=== PATIENT | female | born 1955 | race American Indian/Alaskan Native ===

== ENCOUNTER 2021-07-28 23:31 | Inpatient (IN) | payer BC ==
--- NOTE | 2021-07-29 00:16 | Emergency Department Report ---
ED General Adult HPI - General Chief complaint: Neuro Symptoms/Deficit Stated complaint: FOOT PAIN Time Seen by Provider: 07/29/21 00:09 Source: patient, EMS Mode of arrival: Stretcher Limitations: No Limitations - History of Present Illness Initial comments: Patient is 65 years old female with history of hypertension and a recent suicide attempt by antifreeze. Patient was on vent for a while in another hospital and released [facility] treatment of [facility] ideation. Patient reported that she is having a right foot pain and numbness that started today. Patient denied any fever or chills. No chest pain or shortness of unique th. No weakness or bowel incontinence or bladder incontinence. - Related Data Allergies Allergy/AdvReac Type Severity Reaction Status Date / Time Sulfa (Sulfonamide Allergy Hives Verified 07/29/21 00:08 Antibiotics) ED Review of Systems ROS: Stated complaint: FOOT PAIN Other details as noted in HPI Comment: All other systems reviewed and negative Constitutional: denies: chills, fever Respiratory: denies: orthopnea, shortness of breath, SOB with exertion Cardiovascular: denies: chest pain, palpitations Gastrointestinal: denies: abdominal pain, nausea, vomiting Musculoskeletal: denies: back pain Neurological: numbness, paresthesias. denies: headache, weakness, confusion, abnormal gait ED Past Medical Hx - Past Medical History Previous Medical History?: Yes Hx Hypertension: Yes Additional medical history: Suicidal Attempt - Surgical History Past Surgical History?: Yes Additional Surgical History: Hysterectomy - Social History Smoking Status: Never Smoker Substance Use Type: None ED Physical Exam - General Limitations: No Limitations General appearance: alert, in no apparent distress - Head Head exam: Present: atraumatic, normocephalic, normal inspection - Eye Eye exam: Present: normal appearance, PERRL - ENT ENT exam: Present: normal exam, normal orophraynx, mucous membranes moist - Neck Neck exam: Present: normal inspection, full ROM. Absent: tenderness, meningismus - Respiratory Respiratory exam: Present: normal lung sounds bilaterally - Cardiovascular Cardiovascular Exam: Present: regular rate, normal rhythm, normal heart sounds - GI/Abdominal GI/Abdominal exam: Present: soft, normal bowel sounds. Absent: distended, tenderness, guarding, rebound, rigid, organomegaly, mass, bruit, pulsatile mass - Extremities Exam Extremities exam: Present: normal inspection, full ROM, normal capillary refill. Absent: tenderness, pedal edema, joint swelling, calf tenderness - Back Exam Back exam: Present: normal inspection, full ROM. Absent: CVA tenderness (R), CVA tenderness (L) - Neurological Exam Neurological exam: Present: alert, oriented X3, CN II-XII intact. Absent: motor sensory deficit - Psychiatric Psychiatric exam: Present: flat affect - Skin Skin exam: Present: warm, intact, normal color ED Course Vital Signs 07/28/21 07/29/21 07/29/21 23:52 00:05 00:16 Temperature 98 F Pulse Rate 88 71 Respiratory 18 13 15 Rate Blood Pressure 155/66 Blood Pressure [Left] O2 Sat by Pulse 18 L 98 100 Oximetry 07/29/21 07/29/21 07/29/21 00:30 00:45 00:46 Temperature 97.9 F Pulse Rate 69 66 Respiratory 18 15 20 Rate Blood Pressure 153/67 Blood Pressure 153/67 [Left] O2 Sat by Pulse 100 98 98 Oximetry 07/29/21 07/29/21 07/29/21 01:00 01:16 01:30 Temperature Pulse Rate 64 58 L 71 Respiratory 18 17 21 Rate Blood Pressure 134/59 134/59 106/53 Blood Pressure [Left] O2 Sat by Pulse 98 97 99 Oximetry 07/29/21 07/29/21 07/29/21 01:56 02:00 02:06 Temperature Pulse Rate 79 76 73 Respiratory 23 17 Rate Blood Pressure Blood Pressure 148/56 [Left] O2 Sat by Pulse 99 97 Oximetry 07/29/21 07/29/21 07/29/21 02:16 02:30 02:46 Temperature Pulse Rate 67 63 88 Respiratory 20 17 23 Rate Blood Pressure 155/65 144/64 144/64 Blood Pressure [Left] O2 Sat by Pulse 97 97 97 Oximetry 07/29/21 07/29/21 07/29/21 03:00 03:16 03:30 Temperature Pulse Rate 74 56 L 73 Respiratory 23 16 21 Rate Blood Pressure 152/68 152/68 163/79 Blood Pressure [Left] O2 Sat by Pulse 97 95 94 Oximetry 07/29/21 07/29/21 07/29/21 03:46 04:00 04:16 Temperature Pulse Rate 70 68 54 L Respiratory 20 20 15 Rate Blood Pressure 163/79 147/59 147/59 Blood Pressure [Left] O2 Sat by Pulse 97 97 96 Oximetry 07/29/21 07/29/21 07/29/21 04:30 04:46 05:00 Temperature Pulse Rate 53 L 60 55 L Respiratory 15 17 15 Rate Blood Pressure 112/46 112/46 123/54 Blood Pressure [Left] O2 Sat by Pulse 96 98 96 Oximetry 07/29/21 07/29/21 07/29/21 05:16 05:30 05:46 Temperature Pulse Rate 72 74 80 Respiratory 20 22 24 Rate Blood Pressure 123/54 141/56 141/56 Blood Pressure [Left] O2 Sat by Pulse 98 98 97 Oximetry 07/29/21 07/29/21 07/29/21 06:00 06:16 06:30 Temperature Pulse Rate 73 80 69 Respiratory 22 25 H 22 Rate Blood Pressure 142/46 142/46 145/61 Blood Pressure [Left] O2 Sat by Pulse 96 96 95 Oximetry 07/29/21 07/29/21 07/29/21 06:46 07:00 07:16 Temperature Pulse Rate 66 57 L 65 Respiratory 21 17 15 Rate Blood Pressure 145/61 128/52 128/52 Blood Pressure [Left] O2 Sat by Pulse 95 93 97 Oximetry 07/29/21 07/29/21 07/29/21 07:30 07:40 07:44 Temperature Pulse Rate 64 71 Respiratory 18 19 Rate Blood Pressure 146/61 146/61 Blood Pressure [Left] O2 Sat by Pulse 97 97 98 Oximetry 07/29/21 07/29/21 07:50 08:00 Temperature Pulse Rate 81 71 Respiratory 23 13 Rate Blood Pressure 146/61 154/77 Blood Pressure [Left] O2 Sat by Pulse 97 96 Oximetry ED Medical Decision Making - Lab Data Result diagrams: 07/29/21 00:20 07/29/21 00:20 - Radiology Data Radiology results: report reviewed - Medical Decision Making Patient is 65 years old female with history of hypertension and a recent suicide attempt by antifreeze. Patient was on vent for a while in another hospital and released yesterday to [facility] for treatment of suicidal ideation. Patient reported that she is having a right foot pain and numbness that started today. Patient denied any fever or chills. No chest pain or shortness of breath. No weakness or bowel incontinence or bladder incontinence. Labs reviewed and is unremarkable. CTA right lower extremity showed loculated collection could be hematoma or infection according to the report. Report also indicated that this is good have some mass-effect on sciatic nerve and will produce patient current symptoms of paresthesia in the right lower extremity. I discussed the patient with Dr. Bruce, surgeon on-call and he advised to admit the patient to the hospital for further management. I discussed the patient with Dr. Dumont, he agreed to admit the patient to the hospital. Critical care attestation.: If time is entered above; I have spent that time in minutes in the direct care of this critically ill patient, excluding procedure time. ED Disposition Clinical Impression: Numbness of right foot, Mass Disposition: 02 SHORT TERM HOSPITAL Is pt being admited?: Yes Condition: Stable
[2021-07-29 00:56] LABS: Basophils % (Auto) 0.5 % (0.0-1.8); Eosinophils # (Auto) 0.1 K/mm3 (0.0-0.4); Eosinophils % (Auto) 1.8 % (0.0-4.3); Hematocrit 35.8 % (30.3-42.9); Hemoglobin 12.8 gm/dl (10.1-14.3); Lymphocytes # (Auto) 1.3 K/mm3 (1.2-5.4); Lymphocytes % (Auto) 16.5 % (13.4-35.0); Mean Corpuscular HGB Conc 36 % (30-34); Mean Corpuscular Volume 88 fl (79-97); Monocytes % (Auto) 12.1 % (0.0-7.3); Platelet Count 287 K/mm3 (140-440); Red Blood Count 4.06 M/mm3 (3.65-5.03); Red Cell Distribution Width 12.6 % (13.2-15.2)
[2021-07-29 01:05] LABS: Blood Urea Nitrogen 10 mg/dL (7-17); Hemolysis Index 4
[2021-07-29 01:09] LABS: BUN/Creatinine Ratio 20
--- NOTE | 2021-07-29 02:55 | Cat Scan Report ---
CTA ABDOMEN, PELVIS, AND LOWER EXTREMITIES INDICATION: right foot pain and numbness. TECHNIQUE: Axial CT images were obtained through the abdomen, pelvis and lower extremities after injection of IV contrast. 3 plane MIP reconstructions were produced. All CT scans at this location are performed usi ng CT dose reduction for ALARA by means of automated exposure control. COMPARISON: None available. FINDINGS: CTA ABDOMEN: Abdominal Aorta: No significant abnormality. Celiac Artery: No significant abnormality. Superior Mesenteric Artery: No significant abnormality. Right Renal Artery: No significant abnormality. Left Renal Artery: No significant abnormality. Inferior Mesenteric Artery: No significant abnormality. CTA PELVIS: RIGHT: Common Iliac Artery: No significant abnormality. Internal Iliac Artery: No significant abnormality. External Iliac Artery: No significant abnormality. LEFT: Common Iliac Artery: No significant abnormality. Internal Iliac Artery: No significant abnormality. External Iliac Artery: No significant abnormality. CTA LOWER EXTREMITIES: RIGHT LOWER EXTREMITY: Common Femoral Artery: No significant abnormality. Superficial Femoral Artery: No significant abnormality. Profunda Femoral Artery: No significant abnormality. Popliteal Artery: No significant abnormality. Anterior Tibial Artery: No significant abnormality. Tibioperoneal Trunk: No significant abnormality. Posterior Tibial Artery: No significant abnormality. Peroneal Artery: No significant abnormality. Ankle runoff: Three vessel. LEFT LOWER EXTREMITY: Common Femoral Artery: No significant abnormality. Superficial Femoral Artery: No significant abnormality. Profunda Femoral Artery: No significant abnormality. Popliteal Artery: No significant abnormality. Anterior Tibial Artery: No significant abnormality. Tibioperoneal Trunk: No significant abnormality. Posterior Tibial Artery: No significant abnormality. Peroneal Artery: No significant abnormality. Ankle runoff: Three vessel. NONTARGET STRUCTURES: ABDOMEN:No significant abnormality. PELVIS:Tubular hypodensity in the right hemipelvis may be hydrosalpinx. This could also be adjacent r ight ovarian cysts. Punctate focus of gas in the bladder lumen could be due to recent instrumentation . LOWER EXTREMITIES:There is subcutaneous edema within both thighs, right greater than left. There is h ypodensity in the region of the proximal posterior right abductor musculature and at the quadratus fe madonna muscle. This could impinge upon the sciatic nerve in this region. SKELETAL: No significant abnormality. ADDITIONAL FINDINGS: Mild bibasilar opacities may be atelectatic. There are trace pleural effusions b ilaterally. IMPRESSION: 1. No significant vascular abnormality. 2. Along the inferior medial aspect of the right hip there is somewhat circumscribed loculated low de nsity in the proximal posterior right adductor muscles and within the right quadratus femoris muscle. Inferior portion of this measures 4.7 x 1.7 cm on axial series 2 image 361. This could be related to recent injury with muscle strain and intramuscular hematoma. In the absence of recent trauma, this c ould be due to infection. There is associated subcutaneous edema in the right thigh. Given the histor y of right lower extremity neuropathic symptoms, this collection may be exerting mass effect on the r ight sciatic nerve in the proximal right thigh. 3. Additional incidental findings as above. Signer Name: Shun Morrow MD Signed: 07/29/2021 2:50 AM Workstation Name: [id number]
[2021-07-29] MEDS ORDERED: ONDANSETRON 4 MG/2 ML INJ IV PRN (05:08)
[2021-07-29] MEDS ORDERED: HYDROmorphone 1 MG/1 ML INJ IV PRN (05:08)
[2021-07-29] MEDS ORDERED: ACETAMINOPHEN 325 MG TAB PO PRN (05:08)
[2021-07-29] MEDS ORDERED: MORPHINE 2 MG/1 ML INJ IV PRN (05:08)
[2021-07-29] MEDS ORDERED: ALBUTEROL 2.5 MG/3 ML NEBU IH PRN (05:08)
[2021-07-29] MEDS ORDERED: hydrALAZINE 20 MG/1 ML INJ IV PRN (05:14)
--- NOTE | 2021-07-29 05:14 | History and Physical Report ---
History of Present Illness Date of examination: 07/29/21 Date of admission: 07/29/21 Chief complaint: Right foot pain and numbness History of present illness: 65 years old female with history of hypertension and a recent suicide attempt by antifreeze. Patient was on vent for a while in another hospital and released yesterday to [facility] for treatment of suicidal ideation. Patient reported that she is having a right foot pain and numbness that started today. Patient denied any fever or chills. No chest pain or shortness of breath. No weakness or bowel incontinence or bladder incontinence. Labs reviewed and is unremarkable. CTA right lower extremity showed loculated collection could be hematoma or infection according to the report. Report also indicated that this is good have some mass-effect on sciatic nerve and will produce patient current symptoms of paresthesia in the right lower extremity. I discussed the patient with Dr. Bruce, surgeon on-call and he advised to admit the patient to the hospital for further management. Past History Past Medical History: hypertension, other (Suicidal attempt) Past Surgical History: hysterectomy, Other Social history: other (Never a smoker) Medications and Allergies Allergies Allergy/AdvReac Type Severity Reaction Status Date / Time Sulfa (Sulfonamide Allergy Hives Verified 07/29/21 00:08 Antibiotics) Active Meds: Active Medications Acetaminophen (Acetaminophen 325 Mg Tab) 650 mg PO Q4H PRN PRN Reason: Pain MILD(1-3)/Fever >100.5/SLATER Albuterol (Albuterol 2.5 Mg/3 Ml Nebu) 2.5 mg IH Q3HRT PRN PRN Reason: Shortness Of Breath Albuterol/Ipratropium (Ipratropium/Albuterol Sulfate 3 Ml Ampul.Neb) 1 ampul IH Q6HRT LENIN Famotidine (Famotidine 20 Mg/2 Ml Inj) 20 mg IV BID LENIN Hydromorphone HCl (Hydromorphone 1 Mg/1 Ml Inj) 0.5 mg IV Q3H PRN PRN Reason: Pain , Severe (7-10) Dextrose/Sodium Chloride (D5/0.45ns) 1,000 mls @ 100 mls/hr IV DIRECT LENIN Morphine Sulfate (Morphine 2 Mg/1 Ml Inj) 2 mg IV Q4H PRN PRN Reason: Pain, Moderate (4-6) Ondansetron HCl (Ondansetron 4 Mg/2 Ml Inj) 4 mg IV Q8H PRN PRN Reason: Nausea And Vomiting Sodium Chloride (Sodium Chloride 0.9% 10 Ml Flush Syringe) 10 ml IV BID LENIN Sodium Chloride (Sodium Chloride 0.9% 10 Ml Flush Syringe) 10 ml IV PRN PRN PRN Reason: LINE FLUSH Review of Systems Constitutional: other (Right foot pain and numbness) Exam - Constitutional Vitals: Temp Pulse Resp BP Pulse Ox 97.9 F 56 L 16 152/68 95 07/29/21 00:45 07/29/21 03:16 07/29/21 03:16 07/29/21 03:16 07/29/21 03:16 General appearance: Present: no acute distress, well-nourished - EENT Eyes: Present: PERRL ENT: hearing intact, clear oral mucosa - Neck Neck: Present: supple, normal ROM - Respiratory Respiratory effort: normal Respiratory: bilateral: CTA - Cardiovascular Heart Sounds: Present: S1 & S2. Absent: rub, click - Extremities Extremities: pulses symmetrical, No edema Peripheral Pulses: within normal limits - Abdominal General gastrointestinal: Present: soft, non-tender, non-distended, normal bowel sounds Female genitourinary: Present: normal - Integumentary Integumentary: Present: clear, warm, dry - Musculoskeletal Musculoskeletal: gait normal, strength equal bilaterally - Psychiatric Psychiatric: appropriate mood/affect, intact judgment & insight - Neurologic Neurologic: CNII-XII intact, moves all extremities Results - Labs CBC & Chem 7: 07/29/21 00:20 07/29/21 00:20 Labs: Laboratory Last Values WBC 8.1 K/mm3 (4.5-11.0) 07/29/21 00:20 RBC 4.06 M/mm3 (3.65-5.03) 07/29/21 00:20 Hgb 12.8 gm/dl (10.1-14.3) 07/29/21 00:20 Hct 35.8 % (30.3-42.9) 07/29/21 00:20 MCV 88 fl (79-97) 07/29/21 00:20 MCH 31 pg (28-32) 07/29/21 00:20 MCHC 36 % (30-34) H 07/29/21 00:20 RDW 12.6 % (13.2-15.2) L 07/29/21 00:20 Plt Count 287 K/mm3 (140-440) 07/29/21 00:20 Lymph % (Auto) 16.5 % (13.4-35.0) 07/29/21 00:20 [place] % (Auto) 12.1 % (0.0-7.3) H 07/29/21 00:20 Eos % (Auto) 1.8 % (0.0-4.3) 07/29/21 00:20 Baso % (Auto) 0.5 % (0.0-1.8) 07/29/21 00:20 Lymph # (Auto) 1.3 K/mm3 (1.2-5.4) 07/29/21 00:20 [place] # (Auto) 1.0 K/mm3 (0.0-0.8) H 07/29/21 00:20 Eos # (Auto) 0.1 K/mm3 (0.0-0.4) 07/29/21 00:20 Baso # (Auto) 0.0 K/mm3 (0.0-0.1) 07/29/21 00:20 Seg Neutrophils % 69.1 % (40.0-70.0) 07/29/21 00:20 Seg Neutrophils # 5.6 K/mm3 (1.8-7.7) 07/29/21 00:20 Sodium 140 mmol/L (137-145) 07/29/21 00:20 Potassium 3.9 mmol/L (3.6-5.0) 07/29/21 00:20 Chloride 102.8 mmol/L (98-107) 07/29/21 00:20 Carbon Dioxide 25 mmol/L (22-30) 07/29/21 00:20 Anion Gap 16 mmol/L 07/29/21 00:20 BUN 10 mg/dL (7-17) 07/29/21 00:20 Creatinine 0.5 mg/dL (0.6-1.2) L 07/29/21 00:20 Estimated GFR > 60 ml/min 07/29/21 00:20 BUN/Creatinine Ratio 20 % 07/29/21 00:20 Glucose 103 mg/dL (65-100) H 07/29/21 00:20 Calcium 9.0 mg/dL (8.4-10.2) 07/29/21 00:20 - Imaging and Cardiology CT scan - pelvis: report reviewed Assessment and Plan VTE prophylaxis?: Mechanical Plan of care discussed with patient/family: Yes - Patient Problems (1) Numbness of right foot Status: Acute Plan to address problem: Admit the patient to the medical floor. NPO. D5 half-normal saline at the rate of 100 cc/h. Morphine 2 mg IV every 4 hours as needed. Reconsult Dr. Bruce to see the patient for evaluation. Recheck CBC in the morning (2) Mass Status: Acute Plan to address problem: NPO. D5 half-normal saline at the rate of 100 cc/h. Morphine 2 mg IV every 4 hours as needed. Reconsult Dr. Bruce to see the patient for evaluation. Recheck CBC in the morning (3) Hypertension Status: Acute Plan to address problem: Hydralazine 10 mg IV every 6 hours as needed. We will continue the home medication. We will monitor the blood pressure closely (4) Suicide attempt Status: Acute Plan to address problem: We monitor the patient closely. Reconsult psych for evaluation (5) DVT prophylaxis Status: Acute Plan to address problem: SCD for DVT prophylaxis. Pepcid 20 mg p.o. twice daily for GI prophylaxis. Patient is a full code
--- NOTE | 2021-07-29 07:23 | Consultation ---
History of Present Illness Consult date: 07/29/21 - History of present illness History of present illness: Pt with recent antifreese [place] reulting in admission and ventillator support now sith co right foot numbness. CTA with good perfusion but with an area of concern in the muscles of the right leg pooibly adjacent to the sciatic nerve. CTA reviewed. area is seen but is likelly not able to compress the nerve with its current size and locaiton. It is also unlikely to cause isolated foot numbness with compression at this point. Ethylene glycol exposure can cause delayed nerve injuries. Cranial nerve palsey has been reported. Peripheral neuropathy related to the metabolic toxins from ethylene glycol is more likely possible. Recommend neurology consult. Past History Past Medical History: hypertension, other (Suicidal attempt) Past Surgical History: hysterectomy, Other Social history: other (Never a smoker) Medications and Allergies Allergies Allergy/AdvReac Type Severity Reaction Status Date / Time Sulfa (Sulfonamide Allergy Hives Verified 07/29/21 00:08 Antibiotics) Active Meds: Active Medications Acetaminophen (Acetaminophen 325 Mg Tab) 650 mg PO Q4H PRN PRN Reason: Pain MILD(1-3)/Fever >100.5/SLATER Albuterol (Albuterol 2.5 Mg/3 Ml Nebu) 2.5 mg IH Q3HRT PRN PRN Reason: Shortness Of Breath Albuterol/Ipratropium (Ipratropium/Albuterol Sulfate 3 Ml Ampul.Neb) 1 ampul IH Q6HRT LENIN Famotidine (Famotidine 20 Mg/2 Ml Inj) 20 mg IV BID LENIN Hydralazine HCl (Hydralazine 20 Mg/1 Ml Inj) 10 mg IV Q6H PRN PRN Reason: Blood Pressure Hydromorphone HCl (Hydromorphone 1 Mg/1 Ml Inj) 0.5 mg IV Q3H PRN PRN Reason: Pain , Severe (7-10) Dextrose/Sodium Chloride (D5/0.45ns) 1,000 mls @ 100 mls/hr IV DIRECT LENIN Morphine Sulfate (Morphine 2 Mg/1 Ml Inj) 2 mg IV Q4H PRN PRN Reason: Pain, Moderate (4-6) Ondansetron HCl (Ondansetron 4 Mg/2 Ml Inj) 4 mg IV Q8H PRN PRN Reason: Nausea And Vomiting Sodium Chloride (Sodium Chloride 0.9% 10 Ml Flush Syringe) 10 ml IV BID LENIN Sodium Chloride (Sodium Chloride 0.9% 10 Ml Flush Syringe) 10 ml IV PRN PRN PRN Reason: LINE FLUSH Exam Vital Signs Temp Pulse Resp BP Pulse Ox 98 F 88 18 155/66 18 L 07/28/21 23:52 07/28/21 23:52 07/28/21 23:52 07/28/21 23:52 07/28/21 23:52 Results - Labs 07/29/21 00:20 07/29/21 00:20 Abnormal lab results 07/29/21 07/29/21 Range/Units 00:20 00:20 MCHC 36 H (30-34) % RDW 12.6 L (13.2-15.2) % [place] % (Auto) 12.1 H (0.0-7.3) % [place] # (Auto) 1.0 H (0.0-0.8) K/mm3 Creatinine 0.5 L (0.6-1.2) mg/dL Glucose 103 H (65-100) mg/dL Diabetes panel 07/29/21 Range/Units 00:20 Sodium 140 (137-145) mmol/L Potassium 3.9 (3.6-5.0) mmol/L Chloride 102.8 (98-107) mmol/L Carbon Dioxide 25 (22-30) mmol/L BUN 10 (7-17) mg/dL Creatinine 0.5 L (0.6-1.2) mg/dL Glucose 103 H (65-100) mg/dL Calcium 9.0 (8.4-10.2) mg/dL Calcium panel 07/29/21 Range/Units 00:20 Calcium 9.0 (8.4-10.2) mg/dL Pituitary panel 07/29/21 Range/Units 00:20 Sodium 140 (137-145) mmol/L Potassium 3.9 (3.6-5.0) mmol/L Chloride 102.8 (98-107) mmol/L Carbon Dioxide 25 (22-30) mmol/L BUN 10 (7-17) mg/dL Creatinine 0.5 L (0.6-1.2) mg/dL Glucose 103 H (65-100) mg/dL Calcium 9.0 (8.4-10.2) mg/dL Adrenal panel 07/29/21 Range/Units 00:20 Sodium 140 (137-145) mmol/L Potassium 3.9 (3.6-5.0) mmol/L Chloride 102.8 (98-107) mmol/L Carbon Dioxide 25 (22-30) mmol/L BUN 10 (7-17) mg/dL Creatinine 0.5 L (0.6-1.2) mg/dL Glucose 103 H (65-100) mg/dL Calcium 9.0 (8.4-10.2) mg/dL Assessment and Plan CTA reviewed. area is seen but is likelly not able to compress the nerve with its current size and locaiton. It is also unlikely to cause isolated foot numbness with compression at this point. Ethylene glycol exposure can cause delayed nerve injuries. Cranial nerve palsey has been reported. Peripheral neuropathy related to the metabolic toxins from ethylene glycol is more likely possible. Recommend neurology consult.
[2021-07-29 10:30] LABS: Bilirubin,Urine NEG (Negative); Blood,Urine SM (Negative); Color,Urine Straw (Yellow); Protein,Urine <15 mg/dL mg/dL (Negative); Urobilinogen,Urine < 2.0 mg/dL (<2.0)
[2021-07-29] MEDS: FAMOTIDINE 20 MG/2 ML INJ IV SCH ×2 (12:00→21:15)
[2021-07-29] MEDS: D5W/0.45% NACL 1,000 ML IV SCH (12:02)
[2021-07-29] MEDS: IPRATROPIUM/ALBUTEROL SULFATE 3 ML AMPUL.NEB IH SCH ×3 (14:42→20:06)
--- NOTE | 2021-07-29 19:11 | Event Note ---
Date: 07/29/21 Progress note: Chart reviewed, patient interviewed and examined by me today. 65 years old female with history of hypertension who lives with her . She was recently admitted to outside hospital for suicide attempt by antifreeze along with oxycodone. Patient was on vent for a while and released yesterday to [facility] facility for treatment of suicidal ideation. Patient reported that she is having a right foot pain and numbness that started today. Patient denied any fever or chills. No chest pain or shortness of breath. No weakness or bowel incontinence or bladder incontinence. Patient denies having this issue in the past. She has no other neurological symptoms currently. Labs reviewed and is unremarkable. CTA right lower extremity showed loculated collection, could be hematoma or infection according to the report. Report also indicated that this is could have some mass-effect on sciatic nerve and will produce patient current symptoms of paresthesia in the right lower extremity. Dr. Bruce, surgeon on-call advised to admit the patient to the hospital for further management. Patient is currently being monitored by sitter in the room. On exam, alert and oriented, flat/depressed affect, no acute distress, face symmetrical, PERRLA, extraocular memories intact and well mucosa moist. Neck supple. No significant carotid bruits. Lungs clear. Heart: RRR, abdomen soft and nontender. No significant ecchymosis noted in the right thigh. Right foot is mildly swollen. Right lower extremity strength: 4/5 with a drift with straight leg raising. Right foot dorsiflexion and plantarflexion's are moderately weak. Gait is limping. The rest of the motor exam is unremarkable. Patient was evaluated by Dr. Bruce today and he feels possible hematoma in right thigh is likely not compressing sciatic nerve. The etiology of paresthesias and weakness in right foot could be caused by ethyleen glycol which could cause a toxic neuropathy. Will order MRI brain. Neurology consulted and evaluations pending. Will obtain medical records from outside hospital.
[2021-07-30] MEDS: D5W/0.45% NACL 1,000 ML IV SCH ×2 (02:18→12:42)
[2021-07-30 06:30] LABS: Basophils % (Auto) 0.7 % (0.0-1.8); Eosinophils # (Auto) 0.1 K/mm3 (0.0-0.4); Eosinophils % (Auto) 1.9 % (0.0-4.3); Hematocrit 33.1 % (30.3-42.9); Hemoglobin 11.5 gm/dl (10.1-14.3); Lymphocytes # (Auto) 1.2 K/mm3 (1.2-5.4); Lymphocytes % (Auto) 21.7 % (13.4-35.0); Mean Corpuscular HGB Conc 35 % (30-34); Mean Corpuscular Volume 89 fl (79-97); Monocytes # (Auto) 0.6 K/mm3 (0.0-0.8); Monocytes % (Auto) 11.3 % (0.0-7.3); Platelet Count 282 K/mm3 (140-440); Red Blood Count 3.74 M/mm3 (3.65-5.03); Red Cell Distribution Width 12.4 % (13.2-15.2)
[2021-07-30 06:38] LABS: Blood Urea Nitrogen 9 mg/dL (7-17); Calcium 8.7 mg/dL (8.4-10.2); Hemolysis Index 6
[2021-07-30 06:39] LABS: BUN/Creatinine Ratio 15
[2021-07-30] MEDS: FAMOTIDINE 20 MG/2 ML INJ IV SCH ×2 (11:08→23:29)
--- NOTE | 2021-07-30 13:57 | Progress Note ---
Assessment and Plan CTA reviewed. area is seen but is likelly not able to compress the nerve with its current size and locaiton. It is also unlikely to cause isolated foot numbness with compression at this point. Ethylene glycol exposure can cause delayed nerve injuries. Cranial nerve palsey has been reported. Peripheral neuropathy related to the metabolic toxins from ethylene glycol is more likely possible. Recommend neurology consult. Subjective Date of service: 07/30/21 Patient Reports: Positive: no new complaints Narrative: Patient continues to note numbness [id number] in her right foot. There is no pain associated with the posterior thigh or upper leg she is able to weight- bear on the leg but notes that the foot is now. Objective Vital Signs - 12hr 07/30/21 07/30/21 07/30/21 05:18 08:11 11:49 Temperature 99.1 F 98.4 F Pulse Rate 69 72 Respiratory 16 18 Rate Blood Pressure 127/64 121/49 O2 Sat by Pulse 97 97 95 Oximetry - Labs 07/30/21 05:53 07/30/21 05:53 Diabetes panel 07/30/21 Range/Units 05:53 Sodium 142 (137-145) mmol/L Potassium 3.6 (3.6-5.0) mmol/L Chloride 104.2 (98-107) mmol/L Carbon Dioxide 26 (22-30) mmol/L BUN 9 (7-17) mg/dL Creatinine 0.6 (0.6-1.2) mg/dL Glucose 113 H (65-100) mg/dL Calcium 8.7 (8.4-10.2) mg/dL Calcium panel 07/30/21 Range/Units 05:53 Calcium 8.7 (8.4-10.2) mg/dL Pituitary panel 07/30/21 Range/Units 05:53 Sodium 142 (137-145) mmol/L Potassium 3.6 (3.6-5.0) mmol/L Chloride 104.2 (98-107) mmol/L Carbon Dioxide 26 (22-30) mmol/L BUN 9 (7-17) mg/dL Creatinine 0.6 (0.6-1.2) mg/dL Glucose 113 H (65-100) mg/dL Calcium 8.7 (8.4-10.2) mg/dL Adrenal panel 07/30/21 Range/Units 05:53 Sodium 142 (137-145) mmol/L Potassium 3.6 (3.6-5.0) mmol/L Chloride 104.2 (98-107) mmol/L Carbon Dioxide 26 (22-30) mmol/L BUN 9 (7-17) mg/dL Creatinine 0.6 (0.6-1.2) mg/dL Glucose 113 H (65-100) mg/dL Calcium 8.7 (8.4-10.2) mg/dL
--- NOTE | 2021-07-30 20:25 | Progress Note ---
Assessment and Plan Assessment and plan: 65 years old female with history of hypertension who lives with her . She was recently admitted to outside hospital for suicide attempt by antifreeze along with oxycodone. Patient was on vent for a while and released yesterday to [facility] for treatment of suicidal ideation. Patient reported that she is having a right foot pain and numbness that started today. Patient denies having this issue in the past. She has no other neurological symptoms currently. Labs reviewed and unremarkable. CTA right lower extremity showed loculated collection, could be hematoma or infection according to the report. Report also indicated that this is could have some mass-effect on sciatic nerve and will produce patient current symptoms of paresthesia in the right lower extremity. Dr. Bruce, surgeon on-call advised to admit the patient to the hospital for further management. (1) Numbness of right foot Status: Acute Plan to address problem: Admit the patient to the medical floor. Reconsult Dr. Bruce to see the patient for evaluation. Patient was evaluated by Dr. Bruce and he feels possible hematoma in right thigh is likely not compressing sciatic nerve. The etiology of paresthesias and weakness in right foot could be caused by ethyleen glycol which could cause a toxic neuropathy. Will order MRI brain and PT OT evaluation. Neurology consulted and evaluations pending. Requested medical records from outside h ospital. Patient is alert and oriented, flat/depressed affect, no acute distress, No swelling ecchymosis noted in the right thigh. Right foot is mildly swollen. Right lower extremity strength: 4/5 with a drift on straight leg raising. Right foot dorsiflexion and plantarflexion's are moderately weak. Gait is limping. The rest of the motor exam is unremarkable. 07/30: Patient reports that paresthesias and weakness in the right lower extremities in particular right foot better. Limping gait better. Patient did undergo PT/OT today, and an orthotic recommended. Patient has no right thigh swelling or bruising. She has no other complaints. She has a sitter recently history of suicide attempt. She is calm and cooperative. MRI brain consult pending. (2) Mass/hematoma in the right thigh, noted on CT scan Status: Acute Plan to address problem: NPO. D5 half-normal saline at the rate of 100 cc/h. Morphine 2 mg IV every 4 hours as needed. Reconsult Dr. Bruce to see the patient for evaluation. Recheck CBC in the morning (3) Hypertension Status: Acute Plan to address problem: Hydralazine 10 mg IV every 6 hours as needed. We will continue the home medication. We will monitor the blood pressure closely (4) recent suicide attempt with ethylene glycol and oxycodone Status: Acute Plan to address problem: We monitor the patient closely. A sitter is placed in the patient's room. Reconsult psych for evaluation (5) DVT prophylaxis Status: Acute Plan to address problem: SCD for DVT prophylaxis. Pepcid 20 mg p.o. twice daily for GI prophylaxis. Patient is a full code Disposition: MRI brain and neurology consult pending. Anticipating discharge in the morning back to [facility]. Discussed with the patient, nursing staff and CM. History Interval history: Patient reports that paresthesias and weakness in the right lower extremities in particular right foot better. Limping gait better. Patient did undergo PT/OT today, and orthotic recommended. Patient has no right thigh swelling or bruising. She has no other complaints. She has a sitter recently history of suicide attempt. She is calm and cooperative. Hospitalist Physical - Constitutional Vitals: Temp Pulse Resp BP Pulse Ox 98.4 F 72 18 121/49 95 07/30/21 11:49 07/30/21 11:49 07/30/21 11:49 07/30/21 11:49 07/30/21 11:49 General appearance: Present: no acute distress, well-nourished - EENT Eyes: Present: PERRL, EOM intact ENT: hearing intact, clear oral mucosa - Neck Neck: Present: supple - Respiratory Respiratory effort: normal Respiratory: bilateral: CTA - Cardiovascular Rhythm: regular - Extremities Extremity abnormal: edema (Mild prednisone for dorsum of the right foot. No bruising, tenderness or swelling in the right thigh.) - Abdominal General gastrointestinal: soft, non-tender, non-distended - Integumentary Integumentary: Absent: rash - Psychiatric Psychiatric: intact judgment & insight, cooperative, other (calm) - Neurologic Neurologic: other (Alert and oriented. Normal speech. Motor exam remarkable for mild to moderate weakness of movements around left ankle with a limping gait which is improving. Sensory exam deferred.) Results - Labs CBC & Chem 7: 07/30/21 05:53 07/30/21 05:53 Labs: Laboratory Last Values WBC 5.7 K/mm3 (4.5-11.0) 07/30/21 05:53 RBC 3.74 M/mm3 (3.65-5.03) 07/30/21 05:53 Hgb 11.5 gm/dl (10.1-14.3) 07/30/21 05:53 Hct 33.1 % (30.3-42.9) 07/30/21 05:53 MCV 89 fl (79-97) 07/30/21 05:53 MCH 31 pg (28-32) 07/30/21 05:53 MCHC 35 % (30-34) H 07/30/21 05:53 RDW 12.4 % (13.2-15.2) L 07/30/21 05:53 Plt Count 282 K/mm3 (140-440) 07/30/21 05:53 Lymph % (Auto) 21.7 % (13.4-35.0) 07/30/21 05:53 [place] % (Auto) 11.3 % (0.0-7.3) H 07/30/21 05:53 Eos % (Auto) 1.9 % (0.0-4.3) 07/30/21 05:53 Baso % (Auto) 0.7 % (0.0-1.8) 07/30/21 05:53 Lymph # (Auto) 1.2 K/mm3 (1.2-5.4) 07/30/21 05:53 [place] # (Auto) 0.6 K/mm3 (0.0-0.8) 07/30/21 05:53 Eos # (Auto) 0.1 K/mm3 (0.0-0.4) 07/30/21 05:53 Baso # (Auto) 0.0 K/mm3 (0.0-0.1) 07/30/21 05:53 Seg Neutrophils % 64.4 % (40.0-70.0) 07/30/21 05:53 Seg Neutrophils # 3.6 K/mm3 (1.8-7.7) 07/30/21 05:53 Sodium 142 mmol/L (137-145) 07/30/21 05:53 Potassium 3.6 mmol/L (3.6-5.0) 07/30/21 05:53 Chloride 104.2 mmol/L (98-107) 07/30/21 05:53 Carbon Dioxide 26 mmol/L (22-30) 07/30/21 05:53 Anion Gap 15 mmol/L 07/30/21 05:53 BUN 9 mg/dL (7-17) 07/30/21 05:53 Creatinine 0.6 mg/dL (0.6-1.2) 07/30/21 05:53 Estimated GFR > 60 ml/min 07/30/21 05:53 BUN/Creatinine Ratio 15 % 07/30/21 05:53 Glucose 113 mg/dL (65-100) H 07/30/21 05:53 Calcium 8.7 mg/dL (8.4-10.2) 07/30/21 05:53 Urine Color Straw (Yellow) 07/29/21 Unknown Urine Turbidity Clear (Clear) 07/29/21 Unknown Urine pH 8.0 (5.0-7.0) H 07/29/21 Unknown Ur Specific [place] 1.029 (1.003-1.030) 07/29/21 Unknown Urine Protein <15 mg/dl mg/dL (Negative) 07/29/21 Unknown Urine Glucose (UA) Neg mg/dL (Negative) 07/29/21 Unknown Urine Ketones Neg mg/dL (Negative) 07/29/21 Unknown Urine Blood Sm (Negative) 07/29/21 Unknown Urine Nitrite Neg (Negative) 07/29/21 Unknown Urine Bilirubin Neg (Negative) 07/29/21 Unknown Urine Urobilinogen < 2.0 mg/dL (<2.0) 07/29/21 Unknown Ur Leukocyte Esterase Neg (Negative) 07/29/21 Unknown Urine WBC (Auto) 1.0 /HPF (0.0-6.0) 07/29/21 Unknown Urine RBC (Auto) 1.0 /HPF (0.0-6.0) 07/29/21 Unknown U Epithel Cells (Auto) < 1.0 /HPF (0-13.0) 07/29/21 Unknown Yi/IV: Voiding Method Toilet Active Medications - Current Medications Current Medications: Generic Name Dose Route Start Last Admin Trade Name Freq PRN Reason Stop Dose Admin Acetaminophen 650 mg 07/29/21 05:08 Acetaminophen 325 Mg Tab PO Q4H PRN Pain MILD(1-3)/Fever >100.5/SLATER Albuterol 2.5 mg 07/29/21 05:08 Albuterol 2.5 Mg/3 Ml Nebu IH Q3HRT PRN Shortness Of Breath Famotidine 20 mg 07/29/21 10:00 07/30/21 11:08 Famotidine 20 Mg/2 Ml Inj IV 20 mg BID LENIN Administration Hydralazine HCl 10 mg 07/29/21 05:14 Hydralazine 20 Mg/1 Ml Inj IV Q6H PRN Blood Pressure Ondansetron HCl 4 mg 07/29/21 05:08 Ondansetron 4 Mg/2 Ml Inj IV Q8H PRN Nausea And Vomiting Sodium Chloride 10 ml 07/29/21 10:00 07/30/21 11:08 Sodium Chloride 0.9% 10 Ml Flush Syringe IV 10 ml BID LENIN Administration Sodium Chloride 10 ml 07/29/21 05:08 Sodium Chloride 0.9% 10 Ml Flush Syringe IV PRN PRN LINE FLUSH
--- NOTE | 2021-07-31 08:55 | Progress Note ---
Assessment and Plan Assessment and plan: 65 years old female with history of hypertension who lives with her . She was recently admitted to outside hospital for suicide attempt by antifreeze along with oxycodone. Patient was on vent for a while and released yesterday to [facility] for treatment of suicidal ideation. Patient reported that she is having a right foot pain and numbness that started today. Patient denies having this issue in the past. She has no other neurological symptoms currently. Labs reviewed and unremarkable. CTA right lower extremity showed loculated collection, could be hematoma or infection according to the report. Report also indicated that this is could have some mass-effect on sciatic nerve and will produce patient current symptoms of paresthesia in the right lower extremity. Dr. Bruce, surgeon on-call advised to admit the patient to the hospital for further management. Patient was evaluated by Dr. Bruce and he felt possible hematoma in right thigh is likely not compressing sciatic nerve. The etiology of paresthesias and weakness in right foot could be caused by ethylene glycol which could cause a toxic neuropathy. Right foot numbness Right thigh hematoma Hypertension Recent suicide attempt with ethylene glycol and oxycodone 07/31/2021. Patient reports that paresthesias and weakness in the right lower extremities in particular right foot better. Limping gait better. Patient did undergo PT/OT yesterday, and orthotic recommended. Patient has no right thigh swelling or bruising. History Interval history: No new issues overnight. Hospitalist Physical - Constitutional Vitals: Temp Pulse Resp BP Pulse Ox 98.5 F 67 20 158/64 100 07/31/21 05:12 07/31/21 05:12 07/31/21 05:12 07/31/21 05:12 07/31/21 07:13 General appearance: Present: no acute distress, well-nourished - EENT Eyes: Present: PERRL, EOM intact ENT: hearing intact, clear oral mucosa, dentition normal - Neck Neck: Present: supple, normal ROM - Respiratory Respiratory effort: normal Respiratory: bilateral: CTA - Cardiovascular Rhythm: regular Heart Sounds: Present: S1 & S2. Absent: gallop, rub - Extremities Extremities: no ischemia, No edema, Full ROM - Abdominal General gastrointestinal: soft, non-tender, non-distended, normal bowel sounds - Integumentary Integumentary: Present: clear, warm, dry - Neurologic Neurologic: CNII-XII intact, moves all extremities Results - Labs CBC & Chem 7: 07/30/21 05:53 07/30/21 05:53 Labs: Laboratory Last Values WBC 5.7 K/mm3 (4.5-11.0) 07/30/21 05:53 RBC 3.74 M/mm3 (3.65-5.03) 07/30/21 05:53 Hgb 11.5 gm/dl (10.1-14.3) 07/30/21 05:53 Hct 33.1 % (30.3-42.9) 07/30/21 05:53 MCV 89 fl (79-97) 07/30/21 05:53 MCH 31 pg (28-32) 07/30/21 05:53 MCHC 35 % (30-34) H 07/30/21 05:53 RDW 12.4 % (13.2-15.2) L 07/30/21 05:53 Plt Count 282 K/mm3 (140-440) 07/30/21 05:53 Lymph % (Auto) 21.7 % (13.4-35.0) 07/30/21 05:53 [place] % (Auto) 11.3 % (0.0-7.3) H 07/30/21 05:53 Eos % (Auto) 1.9 % (0.0-4.3) 07/30/21 05:53 Baso % (Auto) 0.7 % (0.0-1.8) 07/30/21 05:53 Lymph # (Auto) 1.2 K/mm3 (1.2-5.4) 07/30/21 05:53 [place] # (Auto) 0.6 K/mm3 (0.0-0.8) 07/30/21 05:53 Eos # (Auto) 0.1 K/mm3 (0.0-0.4) 07/30/21 05:53 Baso # (Auto) 0.0 K/mm3 (0.0-0.1) 07/30/21 05:53 Seg Neutrophils % 64.4 % (40.0-70.0) 07/30/21 05:53 Seg Neutrophils # 3.6 K/mm3 (1.8-7.7) 07/30/21 05:53 Sodium 142 mmol/L (137-145) 07/30/21 05:53 Potassium 3.6 mmol/L (3.6-5.0) 07/30/21 05:53 Chloride 104.2 mmol/L (98-107) 07/30/21 05:53 Carbon Dioxide 26 mmol/L (22-30) 07/30/21 05:53 Anion Gap 15 mmol/L 07/30/21 05:53 BUN 9 mg/dL (7-17) 07/30/21 05:53 Creatinine 0.6 mg/dL (0.6-1.2) 07/30/21 05:53 Estimated GFR > 60 ml/min 07/30/21 05:53 BUN/Creatinine Ratio 15 % 07/30/21 05:53 Glucose 113 mg/dL (65-100) H 07/30/21 05:53 Calcium 8.7 mg/dL (8.4-10.2) 07/30/21 05:53 C-Reactive Protein 0.50 mg/dL (0.00-1.30) 07/30/21 21:33 Vitamin B12 383.7 pg/mL (211-911) 07/30/21 21:33 Folate 4.55 ng/mL (7.3-26.0) L 07/30/21 21:33 Urine Color Straw (Yellow) 07/29/21 Unknown Urine Turbidity Clear (Clear) 07/29/21 Unknown Urine pH 8.0 (5.0-7.0) H 07/29/21 Unknown Ur Specific [place] 1.029 (1.003-1.030) 07/29/21 Unknown Urine Protein <15 mg/dl mg/dL (Negative) 07/29/21 Unknown Urine Glucose (UA) Neg mg/dL (Negative) 07/29/21 Unknown Urine Ketones Neg mg/dL (Negative) 07/29/21 Unknown Urine Blood Sm (Negative) 07/29/21 Unknown Urine Nitrite Neg (Negative) 07/29/21 Unknown Urine Bilirubin Neg (Negative) 07/29/21 Unknown Urine Urobilinogen < 2.0 mg/dL (<2.0) 07/29/21 Unknown Ur Leukocyte Esterase Neg (Negative) 07/29/21 Unknown Urine WBC (Auto) 1.0 /HPF (0.0-6.0) 07/29/21 Unknown Urine RBC (Auto) 1.0 /HPF (0.0-6.0) 07/29/21 Unknown U Epithel Cells (Auto) < 1.0 /HPF (0-13.0) 07/29/21 Unknown Yi/IV: Voiding Method Toilet Active Medications - Current Medications Current Medications: Generic Name Dose Route Start Last Admin Trade Name Freq PRN Reason Stop Dose Admin Acetaminophen 650 mg 07/29/21 05:08 Acetaminophen 325 Mg Tab PO Q4H PRN Pain MILD(1-3)/Fever >100.5/SLATER Albuterol 2.5 mg 07/29/21 05:08 Albuterol 2.5 Mg/3 Ml Nebu IH Q3HRT PRN Shortness Of Breath Famotidine 20 mg 07/29/21 10:00 07/30/21 23:29 Famotidine 20 Mg/2 Ml Inj IV 20 mg BID LENIN Administration Hydralazine HCl 10 mg 07/29/21 05:14 Hydralazine 20 Mg/1 Ml Inj IV Q6H PRN Blood Pressure Ondansetron HCl 4 mg 07/29/21 05:08 Ondansetron 4 Mg/2 Ml Inj IV Q8H PRN Nausea And Vomiting Sodium Chloride 10 ml 07/29/21 10:00 07/30/21 23:30 Sodium Chloride 0.9% 10 Ml Flush Syringe IV 10 ml BID LENIN Administration Sodium Chloride 10 ml 07/29/21 05:08 Sodium Chloride 0.9% 10 Ml Flush Syringe IV PRN PRN LINE FLUSH
[2021-07-31] MEDS: FAMOTIDINE 20 MG/2 ML INJ IV SCH (09:00)
--- NOTE | 2021-07-31 12:00 | Consultation ---
History of Present Illness - Reason for Consult Consult date: 07/31/21 Reason for consult: Suicide attempt - Chief Complaint Chief complaint: Right foot pain and numbness - History of Present Psychiatric Illness The patient was seen today. She was brought from [facility] for treatment of suicidal thoughts, after attempting to commit suicide by drinking antifreeze. During my evaluation of the patient today, she is a/o x 3. She denies SI/HI at present, but states she got so depressed, and stressed and didn't want to live. The patient says "I'm not depressed now I'm good." She denies being on any psych meds or doing anything like this before. She denies any illicit drug use. The patient says she has not been sleeping good. PAST PSYCHIATRIC HISTORY Diagnoses: Depression Suicide attempts or Self-harm behavior: Yes Prior psychiatric hospitalizations: Yes Substance Abuse history: Denies Previous psychiatric medications tried: Denies Outpatient treatment: Yes PAST MEDICAL HISTORY: Family Psychiatric History: Not available SOCIAL HISTORY Marital Status: Living Arrangements: Spouse Employment Status: Disabled Access to guns/weapons: None reported Education: History of Abuse: None reported Legal History: None reported REVIEW OF SYSTEMS Constitutional: Negative for weight loss ENT: Negative for stridor Respiratory: Negative for cough or hemoptysis All other systems reviewed and are negative MENTAL STATUS EXAMINATION General Appearance and Behavior: Age appropriate, good hygiene, wearing appropriate clothes, good eye contact, cooperative polite with questioning. Cooperation: Participating/engaged Psychomotor Behavior: unremarkable and within normal limits Mood: calm Affect and affective range: congruent with mood Thought Process:Goal oriented Thought Content: Reality oriented Speech: Normal volume, Regular rate and rhythm Intellectual Functioning: Average Suicidal Ideation: Denies, but recent attempt by drinking antifreeze Homicidal Ideation: Denies Hallucinations: Visual Impulse Control: Normal Insight and Judgment:Limited insight and good judgment Memory: Normal Attention: Distractible Orientation: Alert, oriented x 3 Assessment and Plan (1) Major depressive disorder Current Visit: Yes Status: Acute RECOMMENDATIONS 1013 Lexapro 5mg po daily Remeron 7.5mg po qhs Risks, benefits and alternatives of medications discussed with the patient, questions answered and consent obtained from patient. PSYCHOTHERAPY: Supportive psychotherapy provided MEDICAL: Per primary team DELIRIUM PRECAUTIONS: Please re-orient patient frequently, keep lights on during the day, and minimize benzodiazepines and opiates as these medications could worsen patient's confusion. DIRECTOR OF COLLECTIONS AND ARCHIVES: Per medical team DISPOSITION: recommend acute inpatient psychiatric hospitalization at this time. Will follow Thank you for the consult. Please contact with any questions and/or concerns. Medications and Allergies Allergies Allergy/AdvReac Type Severity Reaction Status Date / Time Sulfa (Sulfonamide Allergy Hives Verified 07/29/21 00:08 Antibiotics) Home Medications Medication Instructions Recorded Confirmed Last Taken Type Estradiol Cypionate 5 mg IM Q3W PRN 07/30/21 07/31/21 07/20/21 History [Depo-Estradiol] Losartan [Cozaar] 50 mg PO QDAY 07/30/21 07/30/21 Unknown History ALPRAZolam [Xanax TAB] 0.25 mg PO TID PRN 07/31/21 07/31/21 Unknown History Active Meds: Active Medications Acetaminophen (Acetaminophen 325 Mg Tab) 650 mg PO Q4H PRN PRN Reason: Pain MILD(1-3)/Fever >100.5/SLATER Albuterol (Albuterol 2.5 Mg/3 Ml Nebu) 2.5 mg IH Q3HRT PRN PRN Reason: Shortness Of Breath Famotidine (Famotidine 20 Mg/2 Ml Inj) 20 mg IV BID [facility] Last Admin: 07/31/21 09:00 Dose: 20 mg Hydralazine HCl (Hydralazine 20 Mg/1 Ml Inj) 10 mg IV Q6H PRN PRN Reason: Blood Pressure Ondansetron HCl (Ondansetron 4 Mg/2 Ml Inj) 4 mg IV Q8H PRN PRN Reason: Nausea And Vomiting Sodium Chloride (Sodium Chloride 0.9% 10 Ml Flush Syringe) 10 ml IV BID [facility] Last Admin: 07/31/21 09:00 Dose: 10 ml Sodium Chloride (Sodium Chloride 0.9% 10 Ml Flush Syringe) 10 ml IV PRN PRN PRN Reason: LINE FLUSH Mental Status Exam - Vital signs Last Vital Signs Temp 98.5 F 07/31/21 05:12 Pulse 67 07/31/21 05:12 Resp 20 07/31/21 05:12 BP 158/64 07/31/21 05:12 Pulse Ox 100 07/31/21 07:13 Results Result Diagrams: 07/30/21 05:53 07/30/21 05:53 Abnormal lab results 07/30/21 Range/Units 21:33 Folate 4.55 L (7.3-26.0) ng/mL All other labs normal.
[2021-07-31] MEDS: ESCITALOPRAM 10 MG TAB PO SCH (13:55)
[2021-07-31] MEDS: FAMOTIDINE 20 MG TAB PO SCH (21:59)
[2021-07-31] MEDS ORDERED: MIRTAZAPINE 15 MG TAB PO SCH (22:00)
--- NOTE | 2021-08-01 07:55 | Progress Note ---
Assessment and Plan CTA reviewed. area is seen but is likelly not able to compress the nerve with its current size and locaiton. It is also unlikely to cause isolated foot numbness with compression at this point. Ethylene glycol exposure can cause delayed nerve injuries. Cranial nerve palsey has been reported. Peripheral neuropathy related to the metabolic toxins from ethylene glycol is more likely possible. Recommend neurology consult. Patient states that her numbness is improving. Will sign off for surgery at this time. Subjective Date of service: 08/01/21 Patient Reports: Positive: no new complaints, feels better Objective Vital Signs - 12hr 07/31/21 08/01/21 08/01/21 22:35 04:55 07:38 Temperature 98.5 F 97.8 F Pulse Rate 60 60 Respiratory 16 16 Rate Blood Pressure 164/64 159/69 O2 Sat by Pulse 95 95 99 Oximetry - Labs 07/30/21 05:53 07/30/21 05:53
[2021-08-01] MEDS: FAMOTIDINE 20 MG TAB PO SCH ×2 (09:01→22:03)
[2021-08-01] MEDS: ESCITALOPRAM 10 MG TAB PO SCH (09:01)
--- NOTE | 2021-08-01 09:14 | Discharge Summary ---
Providers - Providers Date of Admission: 07/29/21 05:08 Date of discharge: 08/01/21 Attending physician: HORACIO APODACA 07/29/21 03:26 Consult to Physician [CONS] Stat Comment: Dr. Noonan spoke with Dr. Bruce @ [id number] Consulting Provider: JOSE G BRUCE Physician Instructions: Reason For Exam: Right hip collection causing mass-effect on sciati 07/29/21 05:14 psychiatry consult [Consult to Mental Health] [CONS] Routine Reason For Exam: Suicidal attempt 07/30/21 12:32 Physical Therapy Evaluation and Treat [CONS] Stat Comment: Reason For Exam: eval and treat 07/30/21 17:37 Consult to Physician [CONS] Stat Comment: Consulting Provider: RADHA COREA Physician Instructions: Reason For Exam: Paresthesias and weakness in the right LE Primary care physician: ROMMEL BRADFORD Hospitalization Reason for admission: LE pain Condition: Stable Hospital course: 65 years old female with history of hypertension who lives with her . She was recently admitted to outside hospital for suicide attempt by antifreeze along with oxycodone. Patient was on vent for a while and released to [facility] facility for treatment of suicidal ideation. Patient reported that she was having a right foot pain and numbness that started the day of admission. Patient denied having this issue in the past. She has no other neurological symptoms. Labs reviewed and unremarkable. CTA right lower extremity showed loculated collection, could be hematoma or infection according to the report. Report also indicated that this is could have some mass-effect on sciatic nerve and will produce patient current symptoms of paresthesia in the right lower extremity. Dr. Bruce, surgeon on-call advised to admit the patient to the hospital for further management. Patient was evaluated by Dr. Bruce and he felt possible hematoma in right thigh is likely not compressing sciatic nerve. The etiology of paresthesias and weakness in right foot could be caused by ethylene glycol which could cause a toxic neuropathy. Ethylene glycol exposure can cause delayed nerve injuries. Cranial nerve palsey has been reported. Peripheral neuropathy related to the metabolic toxins from ethylene glycol is more likely possible. Right foot numbness Patient reports that paresthesias and weakness in the right lower extremities in particular right foot resolved. Limping gait better. Patient did undergo PT/OT and orthotic recommended. Patient has no right thigh swelling or bruising. Psychiatry evaluated the patient and recommended 1013 along with Lexapro 5 mg p.o. daily and Remeron 7.5 mg p.o. nightly. Psychiatry also recommended acute inpatient psychiatric hospitalization. Dedicated discharge time 32 minutes. Disposition: 30 STILL A PATIENT Final Discharge Diagnosis (Prints w/discharge instructions): Peripheral neuropathy, suicidal ideation Core Measure Documentation - Palliative Care Palliative Care/ Comfort Measures: Not Applicable - Core Measures Any of the following diagnoses?: none Exam - Constitutional Vitals: Temp Pulse Resp BP Pulse Ox 97.8 F 60 16 159/69 99 08/01/21 04:55 08/01/21 04:55 08/01/21 04:55 08/01/21 04:55 08/01/21 07:38 General appearance: Present: no acute distress, well-nourished - EENT Eyes: Present: PERRL ENT: hearing intact, clear oral mucosa - Neck Neck: Present: supple, normal ROM - Respiratory Respiratory effort: normal Respiratory: bilateral: CTA - Cardiovascular Heart Sounds: Present: S1 & S2. Absent: rub, click - Extremities Extremities: pulses symmetrical, No edema Peripheral Pulses: within normal limits - Abdominal General gastrointestinal: Present: soft, non-tender, non-distended, normal bowel sounds Female genitourinary: Present: normal - Integumentary Integumentary: Present: clear, warm, dry - Musculoskeletal Musculoskeletal: gait normal, strength equal bilaterally - Psychiatric Psychiatric: appropriate mood/affect, intact judgment & insight - Neurologic Neurologic: CNII-XII intact, moves all extremities Plan Activity: advance as tolerated Weight Bearing Status: Weight Bear as Tolerated Diet: regular Follow up with: ROMMEL BRADFORD MD [Primary Care Provider] - 7 Days
--- NOTE | 2021-08-01 12:18 | Progress Note ---
Subjective - Reason for Consult Consult date: 08/01/21 Reason for consult: suicidal attempt - Chief Complaint Chief complaint: The patient was seen today. She is sitting in bed eating. The patient says she slept well. She initially says she's doing pretty good. 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 She appeared frustrated while she was talking. She then verbalizes feeling depressed, but feeling a little better. She says "I probably need to go somewhere and help." She denies hallucinations. When asking about suicidal thoughts, she says "no, not really. Just depressed." She denies homicidal thoug hts. The patient also says she didn't sleep well. REVIEW OF SYSTEMS Constitutional: Negative for weight loss ENT: Negative for stridor Respiratory: Negative for cough or hemoptysis All other systems reviewed and are negative MENTAL STATUS EXAMINATION General Appearance and Behavior: Age appropriate, good hygiene, wearing appropriate clothes, good eye contact, cooperative polite with questioning. Cooperation: Participating/engaged Psychomotor Behavior: unremarkable and within normal limits Mood: Depressed Affect and affective range: congruent with mood Thought Process: Goal oriented Thought Content: Reality oriented Speech: Normal volume, Regular rate and rhythm Intellectual Functioning: Average Suicidal Ideation: Passive Homicidal Ideation: Denies Hallucinations: Denies Impulse Control: Normal Insight and Judgment: Limited insight and good judgment Memory: Normal Attention: Distractible Orientation: Alert, oriented x 3 Assessment and Plan (1) Major depressive disorder Current Visit: Yes Status: Acute RECOMMENDATIONS 1013 Increase Lexapro 10mg po daily Increase Remeron 15mg po qhs Risks, benefits and alternatives of medications discussed with the patient, questions answered and consent obtained from patient. PSYCHOTHERAPY: Supportive psychotherapy provided MEDICAL: Per primary team DELIRIUM PRECAUTIONS: Please re-orient patient frequently, keep lights on during the day, and minimize benzodiazepines and opiates as these medications could worsen patient's confusion. MANAGER NET: Per medical team DISPOSITION: recommend acute inpatient psychiatric hospitalization at this time. Will follow Thank you for the consult. Please contact with any questions and/or concerns. Mental Status Exam - Vital signs Last Vital Signs Temp 97.8 F 08/01/21 04:55 Pulse 60 08/01/21 04:55 Resp 16 08/01/21 04:55 BP 159/69 08/01/21 04:55 Pulse Ox 99 03/02/22 07:38
[2021-08-01 16:13] LABS: Amphetamine Screen,Urine Negative; Benzodiazepines Screen,Urine Negative; Cannabinoid Screen,Urine Negative; Cocaine Screen,Urine Negative; Methadone Screen,Urine Negative; Opiate Screen,Urine Negative
[2021-08-01] MEDS: MIRTAZAPINE 15 MG TAB PO SCH (22:03)
--- NOTE | 2021-08-02 09:25 | Progress Note ---
Assessment and Plan Assessment and plan: 65 years old female with history of hypertension who lives with her . She was recently admitted to outside hospital for suicide attempt by antifreeze along with oxycodone. Patient was on vent for a while and released yesterday to [facility] facility for treatment of suicidal ideation. Patient reported that she is having a right foot pain and numbness that started today. Patient denies having this issue in the past. She has no other neurological symptoms currently. Labs reviewed and unremarkable. CTA right lower extremity showed loculated collection, could be hematoma or infection according to the report. Report also indicated that this is could have some mass-effect on sciatic nerve and will produce patient current symptoms of paresthesia in the right lower extremity. Dr. Bruce, surgeon on-call advised to admit the patient to the hospital for further management. Patient was evaluated by Dr. Bruce and he felt possible hematoma in right thigh is likely not compressing sciatic nerve. The etiology of paresthesias and weakness in right foot could be caused by ethylene glycol which could cause a toxic neuropathy. Right foot numbness Right thigh hematoma Hypertension Recent suicide attempt with ethylene glycol and oxycodone 07/31/2021. Patient reports that paresthesias and weakness in the right lower extremities in particular right foot better. Limping gait better. Patient did undergo PT/OT yesterday, and orthotic recommended. Patient has no right thigh swelling or bruising. 08/01/2021. Patient reported no further paresthesias or weakness. Psychiatry recommended acute inpatient psychiatric treatment. I discussed with case management for placement. 08/02/2021. We are still awaiting for acute inpatient psychiatric discharge. Patient otherwise stable. Discharge was held pending Covid test History Interval history: No new issues overnight. Hospitalist Physical - Constitutional Vitals: Temp Pulse Resp BP Pulse Ox 97.7 F 74 16 165/73 97 08/02/21 05:49 08/02/21 05:49 08/02/21 05:49 08/02/21 05:49 08/02/21 05:49 General appearance: Present: no acute distress, well-nourished - EENT Eyes: Present: PERRL, EOM intact ENT: hearing intact, clear oral mucosa, dentition normal - Neck Neck: Present: supple, normal ROM - Respiratory Respiratory effort: normal Respiratory: bilateral: CTA - Cardiovascular Rhythm: regular Heart Sounds: Present: S1 & S2. Absent: gallop, rub - Extremities Extremities: no ischemia, No edema, Full ROM - Abdominal General gastrointestinal: soft, non-tender, non-distended, normal bowel sounds - Integumentary Integumentary: Present: clear, warm, dry - Neurologic Neurologic: CNII-XII intact, moves all extremities Results - Labs CBC & Chem 7: 07/30/21 05:53 07/30/21 05:53 Labs: Laboratory Last Values WBC 5.7 K/mm3 (4.5-11.0) 07/30/21 05:53 RBC 3.74 M/mm3 (3.65-5.03) 07/30/21 05:53 Hgb 11.5 gm/dl (10.1-14.3) 07/30/21 05:53 Hct 33.1 % (30.3-42.9) 07/30/21 05:53 MCV 89 fl (79-97) 07/30/21 05:53 MCH 31 pg (28-32) 07/30/21 05:53 MCHC 35 % (30-34) H 07/30/21 05:53 RDW 12.4 % (13.2-15.2) L 07/30/21 05:53 Plt Count 282 K/mm3 (140-440) 07/30/21 05:53 Lymph % (Auto) 21.7 % (13.4-35.0) 07/30/21 05:53 [place] % (Auto) 11.3 % (0.0-7.3) H 07/30/21 05:53 Eos % (Auto) 1.9 % (0.0-4.3) 07/30/21 05:53 Baso % (Auto) 0.7 % (0.0-1.8) 07/30/21 05:53 Lymph # (Auto) 1.2 K/mm3 (1.2-5.4) 07/30/21 05:53 [place] # (Auto) 0.6 K/mm3 (0.0-0.8) 07/30/21 05:53 Eos # (Auto) 0.1 K/mm3 (0.0-0.4) 07/30/21 05:53 Baso # (Auto) 0.0 K/mm3 (0.0-0.1) 07/30/21 05:53 Seg Neutrophils % 64.4 % (40.0-70.0) 07/30/21 05:53 Seg Neutrophils # 3.6 K/mm3 (1.8-7.7) 07/30/21 05:53 Sodium 142 mmol/L (137-145) 07/30/21 05:53 Potassium 3.6 mmol/L (3.6-5.0) 07/30/21 05:53 Chloride 104.2 mmol/L (98-107) 07/30/21 05:53 Carbon Dioxide 26 mmol/L (22-30) 07/30/21 05:53 Anion Gap 15 mmol/L 07/30/21 05:53 BUN 9 mg/dL (7-17) 07/30/21 05:53 Creatinine 0.6 mg/dL (0.6-1.2) 07/30/21 05:53 Estimated GFR > 60 ml/min 07/30/21 05:53 BUN/Creatinine Ratio 15 % 07/30/21 05:53 Glucose 113 mg/dL (65-100) H 07/30/21 05:53 Calcium 8.7 mg/dL (8.4-10.2) 07/30/21 05:53 C-Reactive Protein 0.50 mg/dL (0.00-1.30) 07/30/21 21:33 Vitamin B12 383.7 pg/mL (211-911) 07/30/21 21:33 Folate 4.55 ng/mL (7.3-26.0) L 07/30/21 21:33 Urine Color Straw (Yellow) 07/29/21 Unknown Urine Turbidity Clear (Clear) 07/29/21 Unknown Urine pH 8.0 (5.0-7.0) H 07/29/21 Unknown Ur Specific [place] 1.029 (1.003-1.030) 07/29/21 Unknown Urine Protein <15 mg/dl mg/dL (Negative) 07/29/21 Unknown Urine Glucose (UA) Neg mg/dL (Negative) 07/29/21 Unknown Urine Ketones Neg mg/dL (Negative) 07/29/21 Unknown Urine Blood Sm (Negative) 07/29/21 Unknown Urine Nitrite Neg (Negative) 07/29/21 Unknown Urine Bilirubin Neg (Negative) 07/29/21 Unknown Urine Urobilinogen < 2.0 mg/dL (<2.0) 07/29/21 Unknown Ur Leukocyte Esterase Neg (Negative) 07/29/21 Unknown Urine WBC (Auto) 1.0 /HPF (0.0-6.0) 07/29/21 Unknown Urine RBC (Auto) 1.0 /HPF (0.0-6.0) 07/29/21 Unknown U Epithel Cells (Auto) < 1.0 /HPF (0-13.0) 07/29/21 Unknown Urine Opiates Screen Negative 08/01/21 15:10 Urine Methadone Screen Negative 08/01/21 15:10 Ur Barbiturates Screen Negative 08/01/21 15:10 Ur Phencyclidine Scrn Negative 08/01/21 15:10 Ur Amphetamines Screen Negative 08/01/21 15:10 U Benzodiazepines Scrn Negative 08/01/21 15:10 Urine Cocaine Screen Negative 08/01/21 15:10 U Marijuana (THC) Screen Negative 08/01/21 15:10 Drugs of Abuse Note Disclamer 08/01/21 15:10 SARS-CoV-2 (PCR) Negative (Negative) 08/01/21 13:42 Yi/IV: Voiding Method Toilet Active Medications - Current Medications Current Medications: Generic Name Dose Route Start Last Admin Trade Name Freq PRN Reason Stop Dose Admin Acetaminophen 650 mg 07/29/21 05:08 Acetaminophen 325 Mg Tab PO Q4H PRN Pain MILD(1-3)/Fever >100.5/SLATER Albuterol 2.5 mg 07/29/21 05:08 Albuterol 2.5 Mg/3 Ml Nebu IH Q3HRT PRN Shortness Of Breath Escitalopram Oxalate 10 mg 08/02/21 10:00 Escitalopram 10 Mg Tab PO QDAY LENIN Famotidine 20 mg 07/31/21 22:00 08/01/21 22:03 Famotidine 20 Mg Tab PO 20 mg BID LENIN Administration Hydralazine HCl 10 mg 07/29/21 05:14 Hydralazine 20 Mg/1 Ml Inj IV Q6H PRN Blood Pressure Mirtazapine 15 mg 08/01/21 22:00 08/01/21 22:03 Mirtazapine 15 Mg Tab PO 15 mg QHS LENIN Administration Ondansetron HCl 4 mg 07/29/21 05:08 Ondansetron 4 Mg/2 Ml Inj IV Q8H PRN Nausea And Vomiting Sodium Chloride 10 ml 07/29/21 10:00 08/01/21 22:03 Sodium Chloride 0.9% 10 Ml Flush Syringe IV 10 ml BID LENIN Administration Sodium Chloride 10 ml 07/29/21 05:08 Sodium Chloride 0.9% 10 Ml Flush Syringe IV PRN PRN LINE FLUSH
[2021-08-02] MEDS: ESCITALOPRAM 10 MG TAB PO SCH (09:58)
[2021-08-02] MEDS: FAMOTIDINE 20 MG TAB PO SCH ×2 (09:58→21:18)
--- NOTE | 2021-08-02 11:26 | Progress Note ---
Subjective - Reason for Consult Consult date: 08/02/21 Reason for consult: suicidal attempt, depression - Chief Complaint Chief complaint: The patient was seen today. She says she's doing okay. She still verbalizes feeling "depressed about everything." I informed the patient that she would still be going to the psych floor. The patient says "I do need to get my mind together, I guess. But how long will I have to stay." She denies hallucinations. REVIEW OF SYSTEMS Constitutional: Negative for weight loss ENT: Negative for stridor Respiratory: Negative for cough or hemoptysis All other systems reviewed and are negative MENTAL STATUS EXAMINATION General Appearance and Behavior: Age appropriate, good hygiene, wearing appropriate clothes, good eye contact, cooperative polite with questioning. Cooperation: Participating/engaged Psychomotor Behavior: unremarkable and within normal limits Mood: Depressed Affect and affective range: congruent with mood Thought Process: Goal oriented Thought Content: Reality oriented Speech: Normal volume, Regular rate and rhythm Intellectual Functioning: Average Suicidal Ideation: Passive Homicidal Ideation: Denies Hallucinations: Denies Impulse Control: Normal Insight and Judgment: Limited insight and good judgment Memory: Normal Attention: Distractible Orientation: Alert, oriented x 3 Assessment and Plan (1) Major depressive disorder Current Visit: Yes Status: Acute RECOMMENDATIONS 1013 Lexapro 10mg po daily Remeron 15mg po qhs Risks, benefits and alternatives of medications discussed with the patient, questions answered and consent obtained from patient. PSYCHOTHERAPY: Supportive psychotherapy provided MEDICAL: Per primary team DELIRIUM PRECAUTIONS: Please re-orient patient frequently, keep lights on during the day, and minimize benzodiazepines and opiates as these medications could worsen patient's confusion. 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 Will follow Thank you for the consult. Please contact with any questions and/or concerns. Mental Status Exam - Vital signs Last Vital Signs Temp 97.7 F 08/02/21 05:49 Pulse 74 08/02/21 05:49 Resp 16 08/02/21 05:49 BP 165/73 08/02/21 05:49 Pulse Ox 97 08/02/21 07:00
[2021-08-02] MEDS: MIRTAZAPINE 15 MG TAB PO SCH (21:18)
[2021-08-03] MEDS: ESCITALOPRAM 10 MG TAB PO SCH (09:39)
[2021-08-03] MEDS: FAMOTIDINE 20 MG TAB PO SCH (09:39)
--- NOTE | 2021-08-03 09:43 | Progress Note ---
Assessment and Plan Assessment and plan: 65 years old female with history of hypertension who lives with her . She was recently admitted to outside hospital for suicide attempt by antifreeze along with oxycodone. Patient was on vent for a while and released yesterday to [facility] facility for treatment of suicidal ideation. Patient reported that she is having a right foot pain and numbness that started today. Patient denies having this issue in the past. She has no other neurological symptoms currently. Labs reviewed and unremarkable. CTA right lower extremity showed loculated collection, could be hematoma or infection according to the report. Report also indicated that this is could have some mass-effect on sciatic nerve and will produce patient current symptoms of paresthesia in the right lower extremity. Dr. Bruce, surgeon on-call advised to admit the patient to the hospital for further management. Patient was evaluated by Dr. Bruce and he felt possible hematoma in right thigh is likely not compressing sciatic nerve. The etiology of paresthesias and weakness in right foot could be caused by ethylene glycol which could cause a toxic neuropathy. Right foot numbness Right thigh hematoma Hypertension Recent suicide attempt with ethylene glycol and oxycodone 07/31/2021. Patient reports that paresthesias and weakness in the right lower extremities in particular right foot better. Limping gait better. Patient did undergo PT/OT yesterday, and orthotic recommended. Patient has no right thigh swelling or bruising. 08/01/2021. Patient reported no further paresthesias or weakness. Psychiatry recommended acute inpatient psychiatric treatment. I discussed with case management for placement. 08/02/2021. We are still awaiting for acute inpatient psychiatric discharge. Patient otherwise stable. Discharge was held pending Covid test 08/03/2021. The patient's chart was faxed to multiple facilities for review. Patient is medically stable. Awaiting for inpatient psychiatric discharge History Interval history: No new issues overnight. Hospitalist Physical - Constitutional Vitals: Temp Pulse Resp BP Pulse Ox 98.8 F 72 16 178/79 95 08/03/21 04:14 08/03/21 04:14 08/03/21 04:14 08/03/21 04:14 08/03/21 04:14 General appearance: Present: no acute distress, well-nourished - EENT Eyes: Present: PERRL, EOM intact ENT: hearing intact, clear oral mucosa, dentition normal - Neck Neck: Present: supple, normal ROM - Respiratory Respiratory effort: normal Respiratory: bilateral: CTA - Cardiovascular Rhythm: regular Heart Sounds: Present: S1 & S2. Absent: gallop, rub - Extremities Extremities: no ischemia, No edema, Full ROM - Abdominal General gastrointestinal: soft, non-tender, non-distended, normal bowel sounds - Integumentary Integumentary: Present: clear, warm, dry - Neurologic Neurologic: CNII-XII intact, moves all extremities Results - Labs CBC & Chem 7: 07/30/21 05:53 07/30/21 05:53 Labs: Laboratory Last Values WBC 5.7 K/mm3 (4.5-11.0) 07/30/21 05:53 RBC 3.74 M/mm3 (3.65-5.03) 07/30/21 05:53 Hgb 11.5 gm/dl (10.1-14.3) 07/30/21 05:53 Hct 33.1 % (30.3-42.9) 07/30/21 05:53 MCV 89 fl (79-97) 07/30/21 05:53 MCH 31 pg (28-32) 07/30/21 05:53 MCHC 35 % (30-34) H 07/30/21 05:53 RDW 12.4 % (13.2-15.2) L 07/30/21 05:53 Plt Count 282 K/mm3 (140-440) 07/30/21 05:53 Lymph % (Auto) 21.7 % (13.4-35.0) 07/30/21 05:53 [place] % (Auto) 11.3 % (0.0-7.3) H 07/30/21 05:53 Eos % (Auto) 1.9 % (0.0-4.3) 07/30/21 05:53 Baso % (Auto) 0.7 % (0.0-1.8) 07/30/21 05:53 Lymph # (Auto) 1.2 K/mm3 (1.2-5.4) 07/30/21 05:53 [place] # (Auto) 0.6 K/mm3 (0.0-0.8) 07/30/21 05:53 Eos # (Auto) 0.1 K/mm3 (0.0-0.4) 07/30/21 05:53 Baso # (Auto) 0.0 K/mm3 (0.0-0.1) 07/30/21 05:53 Seg Neutrophils % 64.4 % (40.0-70.0) 07/30/21 05:53 Seg Neutrophils # 3.6 K/mm3 (1.8-7.7) 07/30/21 05:53 Sodium 142 mmol/L (137-145) 07/30/21 05:53 Potassium 3.6 mmol/L (3.6-5.0) 07/30/21 05:53 Chloride 104.2 mmol/L (98-107) 07/30/21 05:53 Carbon Dioxide 26 mmol/L (22-30) 07/30/21 05:53 Anion Gap 15 mmol/L 07/30/21 05:53 BUN 9 mg/dL (7-17) 07/30/21 05:53 Creatinine 0.6 mg/dL (0.6-1.2) 07/30/21 05:53 Estimated GFR > 60 ml/min 07/30/21 05:53 BUN/Creatinine Ratio 15 % 07/30/21 05:53 Glucose 113 mg/dL (65-100) H 07/30/21 05:53 Calcium 8.7 mg/dL (8.4-10.2) 07/30/21 05:53 C-Reactive Protein 0.50 mg/dL (0.00-1.30) 07/30/21 21:33 Vitamin B12 383.7 pg/mL (211-911) 07/30/21 21:33 Folate 4.55 ng/mL (7.3-26.0) L 07/30/21 21:33 Urine Color Straw (Yellow) 07/29/21 Unknown Urine Turbidity Clear (Clear) 07/29/21 Unknown Urine pH 8.0 (5.0-7.0) H 07/29/21 Unknown Ur Specific [place] 1.029 (1.003-1.030) 07/29/21 Unknown Urine Protein <15 mg/dl mg/dL (Negative) 07/29/21 Unknown Urine Glucose (UA) Neg mg/dL (Negative) 07/29/21 Unknown Urine Ketones Neg mg/dL (Negative) 07/29/21 Unknown Urine Blood Sm (Negative) 07/29/21 Unknown Urine Nitrite Neg (Negative) 07/29/21 Unknown Urine Bilirubin Neg (Negative) 07/29/21 Unknown Urine Urobilinogen < 2.0 mg/dL (<2.0) 07/29/21 Unknown Ur Leukocyte Esterase Neg (Negative) 07/29/21 Unknown Urine WBC (Auto) 1.0 /HPF (0.0-6.0) 07/29/21 Unknown Urine RBC (Auto) 1.0 /HPF (0.0-6.0) 07/29/21 Unknown U Epithel Cells (Auto) < 1.0 /HPF (0-13.0) 07/29/21 Unknown Urine Opiates Screen Negative 08/01/21 15:10 Urine Methadone Screen Negative 08/01/21 15:10 Ur Barbiturates Screen Negative 08/01/21 15:10 Ur Phencyclidine Scrn Negative 08/01/21 15:10 Ur Amphetamines Screen Negative 08/01/21 15:10 U Benzodiazepines Scrn Negative 08/01/21 15:10 Urine Cocaine Screen Negative 08/01/21 15:10 U Marijuana (THC) Screen Negative 08/01/21 15:10 Drugs of Abuse Note Disclamer 08/01/21 15:10 SARS-CoV-2 (PCR) Negative (Negative) 08/01/21 13:42 Yi/IV: Voiding Method Toilet Active Medications - Current Medications Current Medications: Generic Name Dose Route Start Last Admin Trade Name Freq PRN Reason Stop Dose Admin Acetaminophen 650 mg 07/29/21 05:08 Acetaminophen 325 Mg Tab PO Q4H PRN Pain MILD(1-3)/Fever >100.5/SLATER Albuterol 2.5 mg 07/29/21 05:08 Albuterol 2.5 Mg/3 Ml Nebu IH Q3HRT PRN Shortness Of Breath Escitalopram Oxalate 10 mg 08/02/21 10:00 08/03/21 09:39 Escitalopram 10 Mg Tab PO 10 mg QDAY LENIN Administration Famotidine 20 mg 07/31/21 22:00 08/03/21 09:39 Famotidine 20 Mg Tab PO 20 mg BID LENIN Administration Hydralazine HCl 10 mg 07/29/21 05:14 Hydralazine 20 Mg/1 Ml Inj IV Q6H PRN Blood Pressure Mirtazapine 15 mg 08/01/21 22:00 03/03/22 21:18 Mirtazapine 15 Mg Tab PO 15 mg QHS LENIN Administration Ondansetron HCl 4 mg 07/29/21 05:08 Ondansetron 4 Mg/2 Ml Inj IV Q8H PRN Nausea And Vomiting Sodium Chloride 10 ml 07/29/21 10:00 08/03/21 09:39 Sodium Chloride 0.9% 10 Ml Flush Syringe IV 10 ml BID LENIN Administration Sodium Chloride 10 ml 07/29/21 05:08 Sodium Chloride 0.9% 10 Ml Flush Syringe IV PRN PRN LINE FLUSH
[2021-08-03 11:04] VITALS: BP 124/61
--- NOTE | 2021-08-03 11:58 | Progress Note ---
Subjective - Reason for Consult Consult date: 08/03/21 Reason for consult: depression - Chief Complaint Chief complaint: The patient was seen today. She says she has been laying in bed thinking. She says "that was crazy what I did." I ask her what was she speaking of. She says "trying to hurt myself." The patient say "I won't ever do that again. I know that is not the way." She says she had gotten overwhelmed. She denies feeling depressed or overwhelmed at present. She says "right now I feel good." She says "I feel like I can manage things." She denies hallucinations of any kind. She gives me permission to call her spouse. I called him from bedside but no answer. The patient's spouse returned my call. I updated him on the patient's progress, med management and informed him that psych was clearing the patient to go home, once she was medically clear. Mr. Ruiz was happy to hear this. He says "this is great news." He also had his son-in-law on the call and had me to talk to him. They said they will wait for a call to pick the patient up. REVIEW OF SYSTEMS Constitutional: Negative for weight loss ENT: Negative for stridor Respiratory: Negative for cough or hemoptysis All other systems reviewed and are negative MENTAL STATUS EXAMINATION General Appearance and Behavior: Age appropriate, good hygiene, wearing appropriate clothes, good eye contact, cooperative polite with questioning. Cooperation: Participating/engaged Psychomotor Behavior: unremarkable and within normal limits Mood: good Affect and affective range: congruent with mood Thought Process: Goal oriented Thought Content: Reality oriented Speech: Normal volume, Regular rate and rhythm Intellectual Functioning: Average Suicidal Ideation: Denies Homicidal Ideation: Denies Hallucinations: Denies Impulse Control: Normal Insight and Judgment: Limited insight and good judgment Memory: Normal Attention: attentive Orientation: Alert, oriented x 3 Assessment and Plan (1) Major depressive disorder Current Visit: Yes Status: Acute RECOMMENDATIONS d/c 1013 Lexapro 10mg po daily Remeron 15mg po qhs Risks, benefits and alternatives of medications discussed with the patient, questions answered and consent obtained from patient. PSYCHOTHERAPY: Supportive psychotherapy provided MEDICAL: Per primary team DELIRIUM PRECAUTIONS: Please re-orient patient frequently, keep lights on during the day, and minimize benzodiazepines and opiates as these medications could worsen patient's confusion. 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 Will sign off. Thanks Powder Loader to complete safety plan and give the patient all necessary outpatient resources The patient to follow up in 7 to 14 days upon discharge Will sign off. Thanks Thank you for the consult. Please contact with any questions and/or concerns. Case staffed with Dr. Paula Mental Status Exam - Vital signs Last Vital Signs Temp 99.3 F 08/03/21 11:02 Pulse 71 08/03/21 11:02 Resp 18 08/03/21 11:02 BP 124/61 08/03/21 11:02 Pulse Ox 95 08/03/21 04:14
--- NOTE | 2021-08-03 12:37 | Discharge Summary ---
Providers - Providers Date of Admission: 07/29/21 05:08 Date of discharge: 08/03/21 Attending physician: HORACIO APODACA 07/29/21 03:26 Consult to Physician [CONS] Stat Comment: Dr. Noonan spoke with Dr. Bruce @ [id number] Consulting Provider: JOSE G BRUCE Physician Instructions: Reason For Exam: Right hip collection causing mass-effect on sciati 07/29/21 05:14 psychiatry consult [Consult to Mental Health] [CONS] Routine Reason For Exam: Suicidal attempt 07/30/21 12:32 Physical Therapy Evaluation and Treat [CONS] Stat Comment: Reason For Exam: eval and treat 07/30/21 17:37 Consult to Physician [CONS] Stat Comment: Consulting Provider: RADHA COREA Physician Instructions: Reason For Exam: Paresthesias and weakness in the right LE Primary care physician: ROMMEL BRADFORD Hospitalization Reason for admission: LE pain Condition: Stable Hospital course: 65 years old female with history of hypertension who lives with her . She was recently admitted to outside hospital for suicide attempt by antifreeze along with oxycodone. Patient was on vent for a while and released to [facility] for treatment of suicidal ideation. Patient reported that she was having a right foot pain and numbness that started the day of admission. Patient denied having this issue in the past. She has no other neurological symptoms. Labs reviewed and unremarkable. CTA right lower extremity showed loculated collection, could be hematoma or infection according to the report. Report also indicated that this is could have some mass-effect on sciatic nerve and will produce patient current symptoms of paresthesia in the right lower extremity. Dr. Bruce, surgeon on-call advised to admit the patient to the hospital for further management. Patient was evaluated by Dr. Bruce and he felt possible hematoma in right thigh is likely not compressing sciatic nerve. The etiology of paresthesias and weakness in right foot could be caused by ethylene glycol which could cause a toxic neuropathy. Ethylene glycol exposure can cause delayed nerve injuries. Cranial nerve palsey has been reported. Peripheral neuropathy related to the metabolic toxins from ethylene glycol is more likely possible. Right foot numbness Patient reports that paresthesias and weakness in the right lower extremities in particular right foot resolved. Limping gait better. Patient did undergo PT/OT and orthotic recommended. Patient has no right thigh swelling or bruising. Psychiatry evaluated the patient on 07/31 and recommended 1013 along with Lexapro 5 mg p.o. daily and Remeron 7.5 mg p.o. nightly. Psychiatry also recommended acute inpatient psychiatric hospitalization. Psychiatry continue to evaluate the patient daily over the next few days and noted on 08/03 That the patient progressed well with evaluation and medical management and ultimately cleared the patient for discharge home and rescinded the 1013. The patient will be discharged on Lexapro 10 mg p.o. daily and Remeron 15 mg p.o. nightly. Patient should follow-up with psychiatry in 7 to 14 days upon discharge. Dedicated discharge time 32 minutes. Disposition: HOME / SELF CARE / HOMELESS Final Discharge Diagnosis (Prints w/discharge instructions): Right thigh hematoma, hypertension, major depressive disorder Core Measure Documentation - Palliative Care Palliative Care/ Comfort Measures: Not Applicable - Core Measures Any of the following diagnoses?: none Exam - Constitutional Vitals: Temp Pulse Resp BP Pulse Ox 99.3 F 71 18 124/61 96 08/03/21 11:02 08/03/21 11:02 08/03/21 11:02 08/03/21 11:02 08/03/21 07:00 General appearance: Present: no acute distress, well-nourished - EENT Eyes: Present: PERRL ENT: hearing intact, clear oral mucosa - Neck Neck: Present: supple, normal ROM - Respiratory Respiratory effort: normal Respiratory: bilateral: CTA - Cardiovascular Heart Sounds: Present: S1 & S2. Absent: rub, click - Extremities Extremities: pulses symmetrical, No edema Peripheral Pulses: within normal limits - Abdominal General gastrointestinal: Present: soft, non-tender, non-distended, normal bowel sounds Female genitourinary: Present: normal - Integumentary Integumentary: Present: clear, warm, dry - Musculoskeletal Musculoskeletal: gait normal, strength equal bilaterally - Psychiatric Psychiatric: appropriate mood/affect, intact judgment & insight - Neurologic Neurologic: CNII-XII intact, moves all extremities Plan Activity: advance as tolerated Weight Bearing Status: Weight Bear as Tolerated Diet: regular Follow up with: ROMMEL BRADFORD MD [Primary Care Provider] - 7 Days Prescriptions: Escitalopram [Lexapro] 10 mg PO DAILY #30 tablet Mirtazapine 15 mg PO QHS #30
== END 2021-08-03 15:48 | disposition home or self-care (01) | DRG 605 ==
LOC: ED 23:31 → 3A 07-29 05:08
PROVIDERS: ADMIT Hospitalist; ATTEND Hospitalist
DX: S70.11XA Contusion of right thigh, initial encounter (principal); R45.851 Suicidal ideations; R20.0 Anesthesia of skin; I10 Essential (primary) hypertension; F32.9 Major depressive disorder, single episode, unspecified; G62.9 Polyneuropathy, unspecified; X58.XXXA Exposure to other specified factors, initial encounter; Y93.89 Activity, other specified; Y92.89 Other specified places as the place of occurrence of the external cause; Y99.8 Other external cause status; Z88.2 Allergy status to sulfonamides; Z90.710 Acquired absence of both cervix and uterus
CPT/HCPCS: 36415; 75635; 80048; 80307; 81001; 82607; 82747; 85025; 86140; 94640; 99406; G0378; J3490; J7070; Q9967; U0003